=== PATIENT | female | born 1980 | race African-American/Black ===

== ENCOUNTER 2019-03-15 20:35 | Emergency (ER) | payer SELFPAY ==
[~2019-03-15] VITALS: Ht 157.5 cm; Wt 72.6 kg
[2019-03-15 20:42] VITALS: BP 132/94
--- NOTE | 2019-03-15 20:46 | NUR ---
2027- PT BIB AMBULANCE TO ER BED 5
--- NOTE | 2019-03-15 20:46 | NUR ---
2031-- DR. CASTILLO BEDSIDE EVALUATING PT
--- NOTE | 2019-03-15 20:58 | NUR ---
Pt refused to answer questions and compelete physical assesment. ERMD notified.
--- NOTE | 2019-03-15 21:15 | NUR ---
Pt not accepting treatment. Refused to sign AMA. Co-signed AMA document with Officer Ramona.
--- NOTE | 2019-03-15 21:20 | NUR ---
Patient discharged with v/s stable. Ambulatory with steady gait and in custody.
== END 2019-03-15 21:20 | disposition home or self-care (01) ==
LOC: MED 20:35
DX: M25.512 Pain in left shoulder (principal)
CPT/HCPCS: 99283